=== PATIENT | female | born 1990 | race Caucasian/White ===

== ENCOUNTER → 2016-08-21 | Outpatient (CLI) | payer OTHER ==
--- NOTE | 2016-08-22 08:36 | DI ---
PELVIC ULTRASOUND, 08/21/2016 3:08 PM Clinical History: Complex cyst of the right ovary. Previous Exam: 06/18/2016. Technique: Transabdominal scans are performed. The patient preferred not having the transvaginal exam . 30 x 50 x 75 mm. The uterus itself appears normal and the central uterine stripe measures 3 mm. Both ovaries demonstrate multiple small follicular type cysts and demonstrate normal flow. The left ovary is unremarkable. The right ovary no longer demonstrates a complex cyst seen on the previous study alt miriam there is a circular area that is devoid of follicular type cysts and this is located toward the posterior aspect of the ovary. It measures less than 15 mm in diameter and shows no hypervascularity or evidence of a fluid collection. This probably represents the remnants of the complex cystic lesio n seen previously or scar tissue. Because the patient is quite thin and the structures were readily v isible, I do not believe there would be any advantage to performing the transvaginal study. There are no fluid collections or masses. Readin. The complex mass seen on the previous study is no longer visible although there is a small roughl y 15 mm area along the posterior aspect of the right ovary that is devoid of any follicular cysts and is slightly more hypoechoic than the surrounding tissue. This is probably the remnants versus scar t issue of the complex mass seen previously. There is no hypervascularity. The patient preferred not to have a transvaginal study and because the transabdominal study was quite excellent in demonstrating this area, a transvaginal study was not performed. 2. The uterus and left ovary are normal.
== END ==
LOC: US 15:04
PROVIDERS: ATTEND Obstetrics & Gynecology
DX: N83.291 Other ovarian cyst, right side (principal)
CPT/HCPCS: 76856